=== PATIENT | male | born 2000 | race Caucasian/White ===

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

== ENCOUNTER 2019-12-26 19:10 | Emergency (ER) | payer OTHER ==
[~2019-12-26] VITALS: Ht 177.8 cm; Wt 81.6 kg
[2019-12-26 20:16] LABS: BASO # 0.1 10*3/uL (0.0-0.1); BASO % 1.1 % (0.0-1.0); EOS # 0.1 10*3/uL (0.0-0.4); EOS % 1.8 % (1.0-4.0); HEMATOCRIT 44.5 % (42.0-52.0); LYMPH # 1.8 10*3/uL (1.3-4.4); LYMPH % 30.2 % (27.0-41.0); MEAN CELL VOLUME 84.9 fl (80.0-94.0); MEAN CORPUSCULAR HGB 28.4 pg (27.0-31.0); MEAN CORPUSCULAR HGB CONC 33.5 g/dl (33.0-37.0); MEAN PLATELET VOLUME 10.9 fl (9.6-12.3); MONO # 0.5 10*3/uL (0.1-1.0); MONO % 8.7 % (3.0-9.0); NEUT # 3.5 10*3/uL (2.3-7.9); NEUT % 57.9 % (47.0-73.0); PLATELET COUNT AUTOMATED 344 10*3/uL (130-400); RED BLOOD COUNT 5.24 10*6/uL (4.50-5.90); RED CELL DISTRI WIDTH 12.1 % (0-14.5); WHITE BLOOD COUNT 6.1 10*3/uL (4.8-10.8)
[2019-12-26 20:30] LABS: BILIRUBIN NEGATIVE (NEGATIVE); BLOOD NEGATIVE (NEGATIVE); CLARITY SL CLOUDY (CLEAR); COLOR YELLOW (YELLOW); GLUCOSE NEGATIVE (NEGATIVE); KETONE NEGATIVE (NEGATIVE); LEUKO ESTERASE NEGATIVE (NEGATIVE); NITRITE NEGATIVE (NEGATIVE); SPECIFIC GRAVITY 1.015 (1.005-1.030); UROBILINOGEN 0.2 E.U./dl (0.2-1.0)
[2019-12-26 20:32] LABS: ALKALINE PHOSPHATASE 61 U/L (45-117); BUN 13 mg/dl (7-24); CHLORIDE 108 mmol/L (98-107); CREATININE 1.24 mg/dL (0.70-1.30); POTASSIUM 3.6 mmol/L (3.5-5.1); SGOT/AST 21 IU/L (3-35); SGPT/ALT 36 U/L (12-78); SODIUM 139 mmol/L (136-145); TOTAL PROTEIN 7.6 gm/dL (6.4-8.2)
[2019-12-26 20:35] LABS: BACTERIA TRACE; EPITHELIAL CELLS 0-2; RBC 0-2 rbc/hpf (0-2); WBC 0-2 wbc/hpf (0-5)
[2019-12-26 20:37] LABS: TROPONIN I < 0.015 ng/ml (<0.045)
[2019-12-26 21:15] VITALS: BP 134/77
== END 2019-12-26 21:53 | disposition home or self-care (01) ==
LOC: ED 19:10
PROVIDERS: Emergency Medicine Emergency Medical Services
DX: R00.2 Palpitations (principal); R42 Dizziness and giddiness

== ENCOUNTER 2023-04-19 | Emergency (ER) | payer SELFPAY ==
[~2023-04-19] VITALS: Ht 177.8 cm; Wt 81.6 kg
[2023-04-19 00:06] VITALS: BP 165/86
== END 2023-04-19 00:31 | disposition home or self-care (01) ==
LOC: ED
DX: B36.9 Superficial mycosis, unspecified (principal); Z98.890 Other specified postprocedural states

== ENCOUNTER 2023-04-23 21:59 | Emergency (ER) | payer BC ==
[~2023-04-23] VITALS: Ht 177.8 cm; Wt 83.9 kg
[2023-04-23 22:22] VITALS: BP 144/85
[2023-04-24] MEDS ORDERED: FLUCONAZOLE200 MG PO (00:11)
== END 2023-04-24 00:21 | disposition home or self-care (01) ==
LOC: ED 21:59
DX: L30.4 Erythema intertrigo (principal); Z98.890 Other specified postprocedural states

== ENCOUNTER 2023-07-04 05:46 | Emergency (ER) | payer OTHER ==
[~2023-07-04] VITALS: Ht 180.3 cm; Wt 83.5 kg
[~2023-07-04 05:46] MED LIST changes: +FLUCONAZOLE200 MG PO
[2023-07-04 06:07] VITALS: BP 160/102
[2023-07-05 06:09] LABS: HBSAG Negative (Negative); HEP B CORE AB, IGM Negative (Negative); HEPATITIS C ANTIBODY Non Reactive (Non Reactive)
== END 2023-07-04 06:19 | disposition home or self-care (01) ==
LOC: ED 05:46
PROVIDERS: Internal Medicine
DX: Z77.21 Contact with and (suspected) exposure to potentially hazardous body fluids (principal); Z98.890 Other specified postprocedural states

== ENCOUNTER → 2023-10-15 | Outpatient (CLI) | payer OTHER | END | disposition home or self-care (01) | LOC: RAD 09:57 | PROVIDERS: ATTEND Nurse Practitioner Family | DX: M25.561 Pain in right knee (principal) ==